=== PATIENT | male | born 1965 ===

== ENCOUNTER 2021-06-27 08:42 | Emergency (ER) | payer SELFPAY ==
[2021-06-27 08:54] VITALS: BP 128/86
[2021-06-27] MEDS ORDERED: ALBUTEROL 2.5 MG/3 ML NEBU IH ONE (09:14)
--- NOTE | 2021-06-27 09:14 | Emergency Department Report ---
- General Chief Complaint: Upper Respiratory Infection Stated Complaint: SOB,VOMITTING,COUGH Time Seen by Provider: 06/27/21 09:03 Source: patient Mode of arrival: Ambulatory Limitations: No Limitations - History of Present Illness Initial Comments: Patient presents with a 2-day history of respiratory symptoms. He has had a loss of taste and smell for longer than 2 days, but has noticed cough with generalized muscle aches and body aches for 2 days. He has had subjective fevers and chills but has malaise and no energy. He has had no sick contacts. He has had no known exposure to coronavirus. He is not vaccinated. He does report that he is very concerned because he is a type II diabetic. He states that his was also slightly ill with him but his symptoms are worse. He has never been intubated before due to respiratory complaints. He has not had a flu shot in decades. He has not had a pneumonia shot. Patient decided he would come here because he did not know where else to go. - Related Data Allergies Allergy/AdvReac Type Severity Reaction Status Date / Time No Known Allergies Allergy Verified 06/27/21 08:54 ED Review of Systems ROS: Stated complaint: SOB,VOMITTING,COUGH Other details as noted in HPI Comment: All other systems reviewed and negative Constitutional: see HPI, fever Eyes: denies: eye pain ENT: denies: throat pain Respiratory: see HPI Cardiovascular: denies: chest pain Endocrine: denies: unexplained weight loss Gastrointestinal: denies: abdominal pain Genitourinary: denies: dysuria Musculoskeletal: as per HPI, arthralgia, myalgia. denies: back pain Skin: denies: rash Neurological: denies: headache Hematological/Lymphatic: denies: easy bruising ED Past Medical Hx - Past Medical History Hx Diabetes: Yes (Type II) - Family History Family history: diabetes ED Physical Exam - General Limitations: No Limitations, Other (Pulse ox noted and normal) General appearance: alert, in distress (Mild) - Head Head exam: Present: atraumatic, normocephalic, normal inspection - Eye Eye exam: Present: normal appearance, EOMI. Absent: scleral icterus, co njunctival injection - ENT ENT exam: Present: normal exam, normal external ear exam - Neck Neck exam: Present: normal inspection. Absent: meningismus - Respiratory Respiratory exam: Present: respiratory distress (Mild), wheezes - Cardiovascular Cardiovascular Exam: Present: normal rhythm, tachycardia - GI/Abdominal GI/Abdominal exam: Present: soft. Absent: tenderness - Extremities Exam Extremities exam: Present: normal capillary refill. Absent: pedal edema - Back Exam Back exam: Absent: CVA tenderness (R), CVA tenderness (L) - Neurological Exam Neurological exam: Present: alert, oriented X3, CN II-XII intact, normal gait. Absent: motor sensory deficit - Psychiatric Psychiatric exam: Present: normal affect, normal mood - Skin Skin exam: Present: warm, dry ED Course Vital Signs 06/27/21 08:53 Temperature 98.5 F Pulse Rate 102 H Respiratory 18 Rate Blood Pressure 128/86 O2 Sat by Pulse 99 Oximetry - Reevaluation(s) Reevaluation #1: 06/27/21 09:14 Flu swab ordered 06/27/21 09:41 Old records reviewed. Reevaluation #2: 06/27/21 12:42 Patient cannot be located. ED Medical Decision Making - Medical Decision Making Patient presented with difficulty breathing and respiratory symptoms are he was concern for Covid. Is also concern for influenza. Influenza swab have been ordered. This was never completed. Patient apparently eloped prior to this complete them. He did get a continuous albuterol neb. I never had the opportunity to reexamine him as I was waiting on the influenza swab. Multiple staff members tried to find him to complete the influenza swab. He had absconded. He cannot be located at this time. We were never getting an opportunity to discuss his treatments with him or have him sign out AGAINST MEDICAL ADVICE. Critical Care Time: No Critical care attestation.: If time is entered above; I have spent that time in minutes in the direct care of this critically ill patient, excluding procedure time. ED Disposition Clinical Impression: Acute URI, Wheezing Disposition: LEFT AWOL/ELOPED Is pt being admited?: No Condition: Stable
== END 2021-06-27 17:03 | disposition left against medical advice (07) ==
LOC: ED 08:42
DX: J06.9 Acute upper respiratory infection, unspecified (principal); E11.9 Type 2 diabetes mellitus without complications
CPT/HCPCS: 99282